=== PATIENT | male | born 1995 | race Caucasian/White ===

== ENCOUNTER → 2016-07-24 | Emergency (ER) | payer MEDICAID | END | disposition home or self-care (01) | LOC: D.ER 21:51 | DX: K02.9 Dental caries, unspecified (principal); K08.89 Other specified disorders of teeth and supporting structures ==

== ENCOUNTER 2016-09-12 16:32 | Emergency (ER) | payer MEDICAID | END 2016-09-12 19:03 | disposition left against medical advice (07) | LOC: D.ER 16:32 | DX: L05.91 Pilonidal cyst without abscess (principal); Z72.0 Tobacco use ==

== ENCOUNTER 2016-09-13 13:14 | Emergency (ER) | payer MEDICAID | END 2016-09-13 17:05 | disposition home or self-care (01) | LOC: D.ER 13:14 | DX: L05.01 Pilonidal cyst with abscess (principal) ==

== ENCOUNTER 2016-09-16 19:08 | Emergency (ER) | payer MEDICAID | END 2016-09-16 19:56 | disposition home or self-care (01) | LOC: D.ER 19:08 | DX: L02.31 Cutaneous abscess of buttock (principal); Z48.00 Encounter for change or removal of nonsurgical wound dressing ==

== ENCOUNTER 2017-06-22 14:49 | Emergency (ER) | payer MEDICAID | END 2017-06-22 16:38 | disposition home or self-care (01) | LOC: D.ER 14:49 | DX: S61.212A Laceration without foreign body of right middle finger without damage to nail, initial encounter (principal); W26.9XXA Contact with unspecified sharp object(s), initial encounter; Y93.89 Activity, other specified; Y92.019 Unspecified place in single-family (private) house as the place of occurrence of the external cause; F17.200 Nicotine dependence, unspecified, uncomplicated ==

== ENCOUNTER 2017-07-10 23:52 | Emergency (ER) | payer MEDICAID ==
[2017-07-11 00:12] LABS: BASOPHILS 0.3 % (0-2); EOSINOPHILS 3.2 % (0-7); HEMATOCRIT 43.4 % (42.0-54.0); HEMOGLOBIN 15.2 g/dL (13.5-17.5); IMMATURE GRANULOCYTES 0.1 % (0-5); LYMPHOCYTES 30.2 % (15-50); MCV 91.4 fL (80.0-100.0); MEAN PLATELET VOLUME 10.9 fL (7.4-10.4); MONOCYTES 6.8 % (2-11); NEUTROPHILS 59.4 % (40-80); PLATELET COUNT 230 10x3/uL (130-400); RBC 4.75 10x6/uL (4.20-6.10); RDW 12.3 % (11.5-14.5); WBC 13.9 10x3/uL (4.8-10.8)
[2017-07-11 00:27] LABS: ALBUMIN 4.2 g/dL (3.4-5.0); ALKALINE PHOSPHATASE 66 U/L (46-116); ALT (SGPT) 31 U/L (10-68); CALC OSMOLALITY 282 mosm/kg (275-300); CALCIUM 9.7 mg/dL (8.5-10.1); CARBON DIOXIDE 24.5 mmol/L (21.0-32.0); CHLORIDE - SERUM 104 mmol/L (98-107); CREATININE - SERUM 1.2 mg/dL (0.6-1.3); GLUCOSE 131 mg/dL (74-106); LIPASE 141 U/L (73-393); POTASSIUM - SERUM 3.9 mmol/L (3.5-5.1); PROTEIN - SERUM 7.6 g/dL (6.4-8.2); SODIUM 138 mmol/L (136-145); UREA NITROGEN 27 mg/dL (7-18); eGFR NON AFRICAN AMERICAN 80 mL/min (90-120)
== END 2017-07-11 00:28 | disposition home or self-care (01) ==
LOC: D.ER 23:52
PROVIDERS: Family Medicine
DX: K59.00 Constipation, unspecified (principal)

== ENCOUNTER 2017-07-12 02:23 | Emergency (ER) | payer MEDICAID ==
[2017-07-12 02:40] LABS: BASOPHILS 0.2 % (0-2); EOSINOPHILS 3.6 % (0-7); HEMATOCRIT 41.8 % (42.0-54.0); HEMOGLOBIN 14.7 g/dL (13.5-17.5); IMMATURE GRANULOCYTES 0.2 % (0-5); LYMPHOCYTES 31.4 % (15-50); MCH 32.3 pg (26.0-34.0); MCHC 35.2 g/dL (31.0-37.0); MCV 91.9 fL (80.0-100.0); MEAN PLATELET VOLUME 10.6 fL (7.4-10.4); MONOCYTES 5.2 % (2-11); NEUTROPHILS 59.4 % (40-80); PLATELET COUNT 204 10x3/uL (130-400); RBC 4.55 10x6/uL (4.20-6.10); RDW 12.4 % (11.5-14.5); WBC 13.5 10x3/uL (4.8-10.8)
[2017-07-12 02:43] LABS: APPEARANCE HAZY (CLEAR); BILIRUBIN NEGATIVE (NEGATIVE); COLOR YELLOW (YELLOW); GLUCOSE NEGATIVE (NEGATIVE); KETONE SMALL mg/dL (NEGATIVE); NITRITE NEGATIVE (NEGATIVE); PROTEIN TRACE mg/dL (NEGATIVE); UROBILINOGEN NORMAL (NORMAL)
[2017-07-12 02:44] LABS: BACTERIA NONE SEEN /hpf (NONE SEEN); EPITHELIAL CELLS NSEEN /hpf (0-5); RED CELLS - URINE >50 /hpf (0-5); WHITE CELLS - URINE NSEEN /hpf (0-5)
[2017-07-12 02:46] LABS: UDS - AMPHET NEGATIVE QUAL (NEGATIVE); UDS - BARB NEGATIVE QUAL (NEGATIVE); UDS - BENZO NEGATIVE QUAL (NEGATIVE); UDS - COCAINE NEGATIVE QUAL (NEGATIVE); UDS - OPIATE NEGATIVE QUAL (NEGATIVE); UDS - PCP NEGATIVE QUAL (NEGATIVE); UDS - THC POSITIVE QUAL (NEGATIVE)
[2017-07-12 02:51] LABS: ALBUMIN 3.9 g/dL (3.4-5.0); ANION GAP 13.1 mmol/L (8-16); BILIRUBIN - TOTAL 0.3 mg/dL (0.2-1.3); CALCIUM 9.8 mg/dL (8.5-10.1); CARBON DIOXIDE 28.5 mmol/L (21.0-32.0); CREATININE - SERUM 1.3 mg/dL (0.6-1.3); POTASSIUM - SERUM 3.6 mmol/L (3.5-5.1); PROTEIN - SERUM 7.3 g/dL (6.4-8.2)
== END 2017-07-12 08:10 | disposition home or self-care (01) ==
LOC: D.ER 02:23
PROVIDERS: Family Medicine
DX: N20.1 Calculus of ureter (principal)

== ENCOUNTER 2019-01-15 17:25 | Emergency (ER) | payer MEDICAID ==
[~2019-01-15] VITALS: Ht 182.9 cm; Wt 79.5 kg
[2019-01-15 17:37] VITALS: Ht 182.9 cm; Wt 79.5 kg
[2019-01-15] MEDS ORDERED: PENICILLIN V P500 MG PO (21:04)
[2019-01-15] MEDS ORDERED: ULTRAM50 MG PO (21:05)
[2019-01-15 21:28] VITALS: BP 131/60
== END 2019-01-15 21:28 | disposition home or self-care (01) ==
LOC: D.ER 17:25
DX: K04.7 Periapical abscess without sinus (principal); S02.5XXA Fracture of tooth (traumatic), initial encounter for closed fracture; S06.9X0A Unspecified intracranial injury without loss of consciousness, initial encounter

== ENCOUNTER 2019-07-19 07:59 | Emergency (ER) | payer MEDICAID ==
[~2019-07-19] VITALS: Ht 182.9 cm; Wt 77.3 kg
[~2019-07-19 07:59] MED LIST: PENICILLIN V P500 MG PO; ULTRAM50 MG PO
[2019-07-19 08:03] VITALS: Ht 182.9 cm; Wt 77.3 kg
[2019-07-19 08:27] LABS: BASOPHILS 0.4 % (0-2); EOSINOPHILS 4.7 % (0-7); HEMATOCRIT 41.8 % (42.0-54.0); HEMOGLOBIN 13.5 g/dL (13.5-17.5); IMMATURE GRANULOCYTES 0.1 % (0-5); LYMPHOCYTES 25.6 % (15-50); MCH 31.3 pg (26.0-34.0); MCHC 32.3 g/dL (31.0-37.0); MCV 96.8 fL (80.0-100.0); MEAN PLATELET VOLUME 10.4 fL (7.4-10.4); MONOCYTES 5.1 % (2-11); NEUTROPHILS 64.1 % (40-80); PLATELET COUNT 242 10x3/uL (130-400); RBC 4.32 10x6/uL (4.20-6.10); RDW 12.4 % (11.5-14.5); WBC 8.3 10x3/uL (4.8-10.8)
[2019-07-19 08:34] LABS: CALC OSMOLALITY 275 mosm/kg (275-300); CALCIUM 9.1 mg/dL (8.5-10.1); CARBON DIOXIDE 29.9 mmol/L (21.0-32.0); CHLORIDE - SERUM 104 mmol/L (98-107); CREATININE - SERUM 0.8 mg/dL (0.6-1.3); GLUCOSE 98 mg/dL (74-106); POTASSIUM - SERUM 4.3 mmol/L (3.5-5.1); SODIUM 138 mmol/L (136-145); UREA NITROGEN 13 mg/dL (7-18); eGFR NON AFRICAN AMERICAN > 90 mL/min (90-120)
[2019-07-19 08:38] LABS: BILIRUBIN NEGATIVE (NEGATIVE); GLUCOSE NEGATIVE (NEGATIVE); KETONE NEGATIVE (NEGATIVE); NITRITE NEGATIVE (NEGATIVE); UROBILINOGEN NORMAL (NORMAL)
[2019-07-19 08:40] LABS: ALBUMIN 3.4 g/dL (3.4-5.0); ALKALINE PHOSPHATASE 63 U/L (30-120); ALT (SGPT) 24 U/L (10-68); BILIRUBIN - TOTAL 0.15 mg/dL (0.2-1.3); PROTEIN - SERUM 6.3 g/dL (6.4-8.2)
[2019-07-19] MEDS ORDERED: MILK OF MAGNESI30 ML PO (08:47)
[2019-07-19] MEDS ORDERED: MIRALAX17 GM PO (08:47)
[2019-07-19 09:33] VITALS: BP 133/87
== END 2019-07-19 09:35 | disposition home or self-care (01) ==
LOC: D.ER 07:59
PROVIDERS: Family Medicine
DX: R10.9 Unspecified abdominal pain (principal); K59.00 Constipation, unspecified; Z87.442 Personal history of urinary calculi